=== PATIENT | female | born 1960 | race Caucasian/White ===

== ENCOUNTER 2017-07-07 20:06 | Emergency (ER) | payer OTHER ==
[2017-07-07] MEDS ORDERED: Ketorolac Tromethamine 30 MG/ML VIAL ONE (20:49)
== END 2017-07-07 21:13 | disposition home or self-care (01) ==
LOC: ERS 20:06
DX: J10.1 Influenza due to other identified influenza virus with other respiratory manifestations (principal); F17.210 Nicotine dependence, cigarettes, uncomplicated
CPT/HCPCS: 96372; J1885

== ENCOUNTER 2019-01-01 08:53 | Outpatient (CLI) | payer BC, OTHER ==
--- NOTE | 2019-01-01 09:35 | MMO ---
Bilateral MAMMO Bilat Screen [id number]. CLINICAL HISTORY: Patient is 58 years old and is seen for screening. The patient has no family history of breast cancer. The patient has no personal history of cancer. VIEWS: The views performed were: bilateral craniocaudal with tomosynthesis and bilateral mediolateral oblique with tomosynthesis. MAMMOGRAM FINDINGS: There are scattered fibroglandular densities. There are no suspicious masses, suspicious calcifications, or new areas of architectural distortion. IMPRESSION: THERE IS NO MAMMOGRAPHIC EVIDENCE OF MALIGNANCY. A ROUTINE FOLLOW-UP MAMMOGRAM IN 1 YEAR IS RECOMMENDED. THE RESULTS OF THIS EXAM WERE SENT TO THE PATIENT. ACR BI-RADS Category 1 - Negative MAMMOGRAPHY NOTE: 1. A negative mammogram report should not delay a biopsy if a dominant of clinically suspicious mass is present. 2. Approximately 10% to 15% of breast cancers are not detected by mammography. 3. Adenosis and dense breasts may obscure an underlying neoplasm.
== END 2019-01-01 08:54 | disposition home or self-care (01) ==
LOC: BICMAMMO 08:53
PROVIDERS: ATTEND Family Medicine
DX: Z12.31 Encounter for screening mammogram for malignant neoplasm of breast (principal)
CPT/HCPCS: 77063; 77067

== ENCOUNTER 2022-08-30 13:16 | Outpatient (CLI) | payer OTHER ==
[2022-08-30] MEDS ORDERED: Iopamidol-370 76% 500 ML 1 ML ONE (15:09)
== END 2022-08-30 13:17 | disposition home or self-care (01) ==
LOC: BICCT 13:16
PROVIDERS: ATTEND Family Medicine
DX: R93.89 Abnormal findings on diagnostic imaging of other specified body structures (principal); R91.8 Other nonspecific abnormal finding of lung field; J90 Pleural effusion, not elsewhere classified
CPT/HCPCS: 71260; Q9967

== ENCOUNTER 2022-09-11 10:48 | Day surgery (SDC) | payer OTHER, SELFPAY ==
[2022-09-08 13:50] VITALS: BMI 19.9
[2022-09-11] MEDS ORDERED: Lidocaine 1% MPF 2 ML VIAL ONE ×2 (11:36)
[2022-09-11] MEDS ORDERED: Ipratropium/Albuterol 3 ML NEB ONE (11:37)
[2022-09-11] MEDS ORDERED: SUGAMMADEX SODIUM 200 MG/2 ML VIAL ONE (11:54)
[2022-09-11] MEDS ORDERED: fentaNYL PF 100 MCG/2 ML SYRINGE ONE (11:54)
[2022-09-11] MEDS ORDERED: Rocuronium Bromide 10 MG/ML (10ML VIAL) ONE (12:30)
[2022-09-11] MEDS ORDERED: Glycopyrrolate 0.2 MG/ML 5 ML SYRINGE ONE (12:30)
[2022-09-11] MEDS ORDERED: PROPOFOL 200 MG/20 ML VIAL ONE (12:30)
[2022-09-11] MEDS ORDERED: Lidocaine 1% PF 5 ML VIAL ONE (12:30)
[2022-09-11] MEDS ORDERED: NEOSTIGMINE 3 MG/3 ML SYR 3 MG/3 ML SYRINGE ONE (12:30)
[2022-09-11] MEDS ORDERED: Dexamethasone 20 MG/5 ML VIAL ONE (12:30)
[2022-09-11] MEDS ORDERED: Ondansetron PF 4 MG/2 ML Vial ONE (12:30)
== END 2022-09-11 15:17 | disposition home or self-care (01) ==
LOC: SDC 10:48
PROVIDERS: ATTEND Internal Medicine
PROC: 0BBF8ZX Excision of Right Lower Lung Lobe, Via Natural or Artificial Opening Endoscopic, Diagnostic (ICD-10-PCS; principal; 2022-09-11)
PROC: 0B9F8ZX Drainage of Right Lower Lung Lobe, Via Natural or Artificial Opening Endoscopic, Diagnostic (ICD-10-PCS; principal; 2022-09-11)
PROC: 07B74ZX Excision of Thorax Lymphatic, Percutaneous Endoscopic Approach, Diagnostic (ICD-10-PCS; principal; 2022-09-11)
DX: C34.31 Malignant neoplasm of lower lobe, right bronchus or lung (principal); C77.1 Secondary and unspecified malignant neoplasm of intrathoracic lymph nodes; F17.210 Nicotine dependence, cigarettes, uncomplicated; Z79.899 Other long term (current) drug therapy; Z88.5 Allergy status to narcotic agent
CPT/HCPCS: 87070; 87102; 87116; 87205; 87206; 88112; 88172; 88173; 88177; 88305; 88341; 88342; J1100; J2405; J2704; J7620

== ENCOUNTER 2022-09-29 09:30 | Outpatient (CLI) | payer OTHER | END 2022-09-29 09:31 | disposition home or self-care (01) | LOC: PET 09:30 | PROVIDERS: ATTEND Internal Medicine | DX: C34.91 Malignant neoplasm of unspecified part of right bronchus or lung (principal); R91.8 Other nonspecific abnormal finding of lung field | CPT/HCPCS: 78815; A9552 ==

== ENCOUNTER 2022-09-29 11:21 | Outpatient (CLI) | payer OTHER | END 2022-09-29 11:22 | disposition home or self-care (01) | LOC: SCSMRI 11:21 | PROVIDERS: ATTEND Internal Medicine | DX: C34.91 Malignant neoplasm of unspecified part of right bronchus or lung (principal) | CPT/HCPCS: 70553 ==

== ENCOUNTER 2022-10-19 14:32 | Outpatient (CLI) | payer OTHER | END 2022-10-19 14:33 | disposition home or self-care (01) | LOC: ULT 14:32 | PROVIDERS: ATTEND Surgery | DX: C34.31 Malignant neoplasm of lower lobe, right bronchus or lung (principal); I08.3 Combined rheumatic disorders of mitral, aortic and tricuspid valves | CPT/HCPCS: 93306 ==

== ENCOUNTER 2022-11-13 11:44 | Inpatient (IN) | payer OTHER ==
[2022-11-13 12:35] LABS: #Basophils 0.1 thou/uL (0.0-0.2); #Eosinphils 0.2 thou/uL (0.0-0.7); #Lymphocytes 2.4 thou/uL (1.20-3.40); #Monocytes 0.4 thou/uL (0.11-0.59); %Basophils 0.6 % (0.0-1.0); %Eosinophils 1.9 % (0.0-10.0); %Lymphocytes 26.3 % (21.0-51.0); %Monocytes 4.3 % (0.0-10.0); %Neutrophils 67.1 % (42.0-75.0); Hemoglobin 11.4 g/dL (12.0-16.0); Mean Corpuscular HGB CONC 32.1 g/dL (32.0-36.0); Mean Corpuscular Hemoglobin 30.2 pg (27.0-31.0); Mean Corpuscular Volume 94.2 fl (78.0-98.0); Mean Platelet Volume 6.6 fL (7.4-10.4); Platelet Count 652 10x3/uL (130-400); Red Blood Cell (RBC) Count 3.77 mill/uL (4.20-5.40)
[2022-11-13 12:55] LABS: ALT (SGPT) 11 U/L (8-55); AST (SGOT) 12 U/L (5-34); Albumin 3.9 g/dL (3.4-4.8); Alkaline Phosphatase 149 U/L (40-110); Anion Gap 16 mmol/L (10-20); BUN (Urea Nitrogen) 9 mg/dL (9.8-20.1); Bilirubin, Total 0.2 mg/dL (0.2-1.2); Calc. Creatinine Clearance 0 mL/min (70-130); Calcium 10.3 mg/dL (7.8-10.44); Carbon Dioxide 25 mmol/L (23-31); Chloride 100 mmol/L (98-107); Estimated GFR 99; Globulin 3.7 g/dL (2.4-3.5); Glucose 94 mg/dL (80-115); Potassium 4.1 mmol/L (3.5-5.1); Protein, Total 7.6 g/dL (5.8-8.1); Sodium 137 mmol/L (136-145)
[2022-11-13] MEDS ORDERED: Ketorolac Tromethamine 30 MG/ML VIAL ONE (13:28)
[2022-11-13] MEDS ORDERED: Morphine 4 MG/ML VIAL ONE ×2 (14:45→16:07)
[2022-11-13] MEDS ORDERED: Ondansetron PF 4 MG/2 ML Vial ONE (14:45)
[2022-11-13] MEDS ORDERED: Acetaminophen 325 MG TAB PO PRN (15:59)
[2022-11-13] MEDS ORDERED: Morphine 4 MG/ML VIAL SLOW IVP PRN (16:33)
[2022-11-13] MEDS ORDERED: Aspirin 81 mg Enteric Coated Tablet PO SCH (17:00)
[2022-11-13 17:46] LABS: Troponin I Less than 0.010 ng/mL (< 0.028)
[2022-11-13] MEDS: Ketorolac Tromethamine 30 MG/ML VIAL IVP PRN (18:56)
[2022-11-13 20:02] VITALS: BMI 20.8
[2022-11-13] MEDS: Ondansetron PF 4 MG/2 ML Vial IVP PRN (22:05)
[2022-11-13 23:05] LABS: Troponin I Less than 0.010 ng/mL (< 0.028)
[2022-11-14] MEDS ORDERED: Morphine 4 MG/ML VIAL SLOW IVP SCH (00:30)
[2022-11-14] MEDS: Ketorolac Tromethamine 30 MG/ML VIAL IVP PRN (03:51)
[2022-11-14 05:28] LABS: #Basophils 0.1 thou/uL (0.0-0.2); #Eosinphils 0.5 thou/uL (0.0-0.7); #Lymphocytes 2.5 thou/uL (1.20-3.40); #Monocytes 0.4 thou/uL (0.11-0.59); #Neutrophils 3.3 thou/uL (1.40-6.50); %Basophils 0.7 % (0.0-1.0); %Eosinophils 6.8 % (0.0-10.0); %Lymphocytes 37.5 % (21.0-51.0); %Monocytes 6.6 % (0.0-10.0); %Neutrophils 48.5 % (42.0-75.0); Hemoglobin 10.5 g/dL (12.0-16.0); Mean Corpuscular HGB CONC 34.9 g/dL (32.0-36.0); Mean Corpuscular Hemoglobin 32.7 pg (27.0-31.0); Mean Corpuscular Volume 93.9 fl (78.0-98.0); Mean Platelet Volume 6.7 fL (7.4-10.4); Platelet Count 537 10x3/uL (130-400); RBC Distribution Width 13.1 % (11.5-14.5); Red Blood Cell (RBC) Count 3.21 mill/uL (4.20-5.40); White Blood Cell (WBC) Count 6.7 10x3/uL (4.8-10.8)
[2022-11-14 05:42] LABS: Anion Gap 13 mmol/L (10-20); BUN (Urea Nitrogen) 10 mg/dL (9.8-20.1); Calc. Creatinine Clearance 77 mL/min (70-130); Carbon Dioxide 23 mmol/L (23-31); Chloride 105 mmol/L (98-107); Estimated GFR 102; Glucose 103 mg/dL (80-115); Sodium 137 mmol/L (136-145)
[2022-11-14] MEDS: Morphine 2 MG/ML VIAL SLOW IVP PRN ×4 (08:42→23:09)
[2022-11-14] MEDS: Gabapentin 100 MG CAP PO SCH ×3 (08:44→20:21)
[2022-11-14] MEDS: Lidocaine 4% Patch TD SCH (08:45)
[2022-11-14] MEDS: Aspirin 81 mg Enteric Coated Tablet PO SCH (08:45)
[2022-11-14] MEDS ORDERED: Meloxicam 7.5 MG TAB PO SCH (12:00)
[2022-11-14] MEDS ORDERED: Ketorolac Tromethamine 30 MG/ML VIAL IVP PRN (15:44)
[2022-11-14] MEDS: Transdermal Patch Removal TOP SCH (21:40)
[2022-11-15] MEDS: Morphine 2 MG/ML VIAL SLOW IVP PRN ×5 (03:28→23:31)
[2022-11-15] MEDS: Aspirin 81 mg Enteric Coated Tablet PO SCH (08:36)
[2022-11-15] MEDS: Indomethacin 25 mg Capsule PO SCH ×3 (08:36→21:34)
[2022-11-15] MEDS: Gabapentin 100 MG CAP PO SCH ×3 (08:36→21:27)
[2022-11-15] MEDS: Lidocaine 4% Patch TD SCH (08:38)
[2022-11-15] MEDS: HYDROcodone/Acetaminophen 5/325 mg Tablet PO PRN ×2 (14:43→21:28)
[2022-11-15] MEDS: Ondansetron PF 4 MG/2 ML Vial IVP PRN ×2 (14:44→21:27)
[2022-11-15] MEDS: Transdermal Patch Removal TOP SCH (21:41)
[2022-11-16 06:06] VITALS: TEMP 97.4
[2022-11-16] MEDS: Gabapentin 100 MG CAP PO SCH (07:51)
[2022-11-16] MEDS: Indomethacin 25 mg Capsule PO SCH (07:51)
[2022-11-16] MEDS: Aspirin 81 mg Enteric Coated Tablet PO SCH (07:51)
[2022-11-16] MEDS: HYDROcodone/Acetaminophen 5/325 mg Tablet PO PRN (07:53)
[2022-11-16] MEDS: Morphine 2 MG/ML VIAL SLOW IVP PRN (07:58)
[2022-11-16] MEDS: Ondansetron PF 4 MG/2 ML Vial IVP PRN (07:58)
[2022-11-16] MEDS: Lidocaine 4% Patch TD SCH (08:22)
[2022-11-16 11:38] VITALS: BP 112/75
== END 2022-11-16 11:50 | disposition home or self-care (01) | DRG 194 ==
LOC: ERS 11:44 → 2SW 18:42 → OBSVTOIN 11-14 12:02 → T4-A 11-14 12:18 → 2SW 11-14 12:27 → T4-B 11-15 15:09
PROVIDERS: ADMIT Family Medicine; ATTEND Emergency Medicine
DX: R09.1 Pleurisy (principal); C34.90 Malignant neoplasm of unspecified part of unspecified bronchus or lung; J98.11 Atelectasis; E78.5 Hyperlipidemia, unspecified; F41.9 Anxiety disorder, unspecified; Z88.5 Allergy status to narcotic agent; Z79.51 Long term (current) use of inhaled steroids; Z87.891 Personal history of nicotine dependence; Z90.49 Acquired absence of other specified parts of digestive tract; Z90.710 Acquired absence of both cervix and uterus
CPT/HCPCS: 36415; 71275; 80048; 80053; 83605; 84484; 85025; 96372; 96374; 96375; 96376; J1885; J2270; J2272; J2405

== ENCOUNTER 2022-11-29 10:45 | Outpatient (CLI) | payer OTHER ==
[2022-11-29 12:44] LABS: #Eosinphils 0.3 10x3/uL (0.0-0.5); #Monocytes 0.4 10x3/uL (0.0-1.1); #Neutrophils 4.1 10x3/uL (1.5-8.4); %Basophils 0.6 % (0.0-2.0); %Eosinophils 4.8 % (0.0-6.0); %Lymphocytes 28.1 % (18.0-47.0); %Monocytes 5.8 % (0.0-10.0); %Neutrophils 60.3 % (40.0-75.0); Hemoglobin 12.8 g/dL (12.0-15.5); Mean Corpuscular HGB CONC 32.6 g/dL (32.0-36.0); Mean Platelet Volume 9.7 fl (7.4-10.4); Platelet Count 394 10x3/uL (150-450); RBC Distribution Width 14.5 % (11.5-14.5); Red Blood Cell (RBC) Count 4.27 10x6/uL (3.90-5.03); White Blood Cell (WBC) Count 6.7 10x3/uL (3.5-10.5)
[2022-11-29 13:29] LABS: Anion Gap 15 mmol/L (10-20); BUN (Urea Nitrogen) 13 mg/dL (9.8-20.1); Calc. Creatinine Clearance 0 mL/min (70-130); Calcium 9.7 mg/dL (7.8-10.44); Carbon Dioxide 26 mmol/L (23-31); Chloride 102 mmol/L (98-107); Estimated GFR 98; Glucose 91 mg/dL (80-115); Potassium 4.9 mmol/L (3.5-5.1); Sodium 138 mmol/L (136-145)
== END 2022-11-29 10:46 | disposition home or self-care (01) ==
LOC: LABBT 10:45
PROVIDERS: ATTEND Specialist
DX: Z01.818 Encounter for other preprocedural examination (principal); C34.91 Malignant neoplasm of unspecified part of right bronchus or lung
CPT/HCPCS: 71046; 80048; 85025

== ENCOUNTER 2022-11-30 10:35 | Day surgery (SDC) | payer OTHER ==
[2022-11-29 11:19] VITALS: BMI 20.6
[2022-11-30] MEDS ORDERED: Ketorolac Tromethamine 30 MG/ML VIAL ONE (11:25)
[2022-11-30] MEDS ORDERED: Acetaminophen 500 MG TAB ONE (11:25)
[2022-11-30] MEDS ORDERED: Propofol 500 MG/50 ML VIAL ONE (12:37)
[2022-11-30] MEDS ORDERED: fentaNYL PF 100 MCG/2 ML SYRINGE ONE (12:37)
[2022-11-30] MEDS ORDERED: Lidocaine 2% PF 5 ML VIAL ONE (12:39)
[2022-11-30] MEDS ORDERED: Bupivacaine/Epinephrine 0.25% 30 ML VIAL ONE (12:39)
[2022-11-30] MEDS ORDERED: PROPOFOL 200 MG/20 ML VIAL ONE (13:28)
[2022-11-30] MEDS ORDERED: Ondansetron PF 4 MG/2 ML Vial ONE (13:28)
== END 2022-11-30 15:32 | disposition home or self-care (01) ==
LOC: SDC 10:35
PROVIDERS: ATTEND Specialist
PROC: 02HV33Z Insertion of Infusion Device into Superior Vena Cava, Percutaneous Approach (ICD-10-PCS; principal; 2022-11-30)
PROC: B518ZZA Fluoroscopy of Superior Vena Cava, Guidance (ICD-10-PCS; principal; 2022-11-30)
PROC: 0JH60WZ Insertion of Totally Implantable Vascular Access Device into Chest Subcutaneous Tissue and Fascia, Open Approach (ICD-10-PCS; principal; 2022-11-30)
DX: C34.91 Malignant neoplasm of unspecified part of right bronchus or lung (principal); Z87.891 Personal history of nicotine dependence; Z88.5 Allergy status to narcotic agent; Z90.2 Acquired absence of lung [part of]
CPT/HCPCS: 71045; C1788; J1642; J1885; J2001; J2405; J2704

== ENCOUNTER 2023-06-22 08:24 | Inpatient (IN) | payer OTHER ==
[2023-06-22] MEDS ORDERED: HYDROmorphone 0.5 MG/0.5 ML SYRINGE ONE ×2 (08:49→10:48)
[2023-06-22] MEDS ORDERED: Ketorolac Tromethamine 30 MG/ML VIAL ONE (08:49)
[2023-06-22] MEDS ORDERED: Ondansetron PF 4 MG/2 ML Vial ONE (08:49)
[2023-06-22 09:04] LABS: #Monocytes 0.4 thou/uL (0.11-0.59); #Neutrophils 8.5 thou/uL (1.40-6.50); %Basophils 0.4 % (0.0-1.0); %Eosinophils 0.1 % (0.0-10.0); %Lymphocytes 12.1 % (21.0-51.0); %Monocytes 3.9 % (0.0-10.0); Hematocrit 50.9 % (36.0-47.0); Hemoglobin 17.6 g/dL (12.0-16.0); Mean Corpuscular HGB CONC 34.6 g/dL (32.0-36.0); Mean Corpuscular Hemoglobin 33.5 pg (27.0-31.0); Mean Corpuscular Volume 96.8 fl (78.0-98.0); Mean Platelet Volume 9.5 fL (7.4-10.4); Platelet Count 334 10x3/uL (130-400); RBC Distribution Width 11.9 % (11.5-14.5); Red Blood Cell (RBC) Count 5.26 mill/uL (4.20-5.40); White Blood Cell (WBC) Count 10.3 10x3/uL (4.8-10.8)
[2023-06-22 09:29] LABS: ALT (SGPT) 8 U/L (8-55); AST (SGOT) 16 U/L (5-34); Albumin 4.8 g/dL (3.4-4.8); Alkaline Phosphatase 134 U/L (40-110); Anion Gap 24 mmol/L (10-20); BUN (Urea Nitrogen) 21 mg/dL (9.8-20.1); Bilirubin, Total 1.2 mg/dL (0.2-1.2); Calc. Creatinine Clearance 0 mL/min (70-130); Carbon Dioxide 29 mmol/L (23-31); Chloride 88 mmol/L (98-107); Estimated GFR 59; Globulin 3.3 g/dL (2.4-3.5); Glucose 111 mg/dL (80-115); Lipase 10 U/L (8-78); Potassium 4.2 mmol/L (3.5-5.1); Protein, Total 8.1 g/dL (5.8-8.1); Sodium 137 mmol/L (136-145)
[2023-06-22 09:36] LABS: Calcium 13.8 mg/dL (7.8-10.44)
[2023-06-22] MEDS ORDERED: Lidocaine 2% Viscous Solution 10 ML, Aluminum & Magnesium Hydroxide 30 ML SSW SCH (11:00)
[2023-06-22 11:45] LABS: Troponin I 0.052 ng/mL (< 0.028)
[2023-06-22] MEDS ORDERED: Acetaminophen 325 MG TAB PO PRN (12:27)
[2023-06-22] MEDS ORDERED: Acetaminophen 650 MG Suppository PR PRN (12:27)
[2023-06-22] MEDS ORDERED: Ondansetron ODT 4 MG TAB PO PRN (12:27)
[2023-06-22] MEDS ORDERED: Pantoprazole 40 MG VIAL IVP SCH (12:29)
[2023-06-22] MEDS ORDERED: Sodium Chloride 0.9% 1,000 ML IV SCH (12:30)
[2023-06-22] MEDS ORDERED: Morphine 2 MG/ML VIAL SLOW IVP PRN (12:36)
[2023-06-22 12:41] LABS: Troponin I 0.047 ng/mL (< 0.028)
[2023-06-22] MEDS ORDERED: CALCITONIN SALMON SYNTHETIC IM SCH (13:15)
[2023-06-22] MEDS ORDERED: Iopamidol-370 76% 500 ML MDV (1 ML CHARGE) ONE (13:34)
[2023-06-22] MEDS ORDERED: Pantoprazole 40 MG VIAL ONE (13:36)
[2023-06-22] MEDS: Lidocaine 2% Viscous 100 ML BOTTLE SSW SCH ×3 (13:57→19:31)
[2023-06-22 14:24] LABS: Bacteria/HPF None Seen HPF (None Seen); Bilirubin Negative (Negative); Blood, Urine Negative (Negative); CAUTI Indications for Culture Immunosuppressed; Clarity Clear (Clear); Glucose, Urine (Dipstick) Normal (Negative); Ketone, Urine 100 mg/dL (Negative); Leukocyte Negative Leu/uL (Negative); Nitrite Negative (Negative); Protein, Urine (Dipstick) 10 mg/dL (Neg-Trace); RBC/HPF 0-3 HPF (0-3); Squamous Epithelial 0-3 HPF (0-3); Urobilinogen Normal mg/dL (Less than 2); WBC/HPF 0-3 HPF (0-3)
[2023-06-22 14:26] LABS: Specific Gravity, Urine 1.057 (1.002-1.036)
[2023-06-22 14:27] LABS: Urine Culture Reflex Yes Yes
[2023-06-22 14:58] VITALS: BMI 20.2
[2023-06-22] MEDS: Gabapentin 300 MG CAP PO SCH ×2 (15:42→19:29)
[2023-06-22] MEDS: Ondansetron PF 4 MG/2 ML Vial IVP PRN (17:09)
[2023-06-22 17:46] LABS: Anion Gap 13 mmol/L (10-20); BUN (Urea Nitrogen) 17 mg/dL (9.8-20.1); Calc. Creatinine Clearance 55 mL/min (70-130); Calcium 10.4 mg/dL (7.8-10.44); Carbon Dioxide 29 mmol/L (23-31); Chloride 101 mmol/L (98-107); Estimated GFR 85; Glucose 95 mg/dL (80-115); Potassium 3.5 mmol/L (3.5-5.1); Sodium 139 mmol/L (136-145)
[2023-06-22] MEDS ORDERED: Mag-Al 1200 mg/1200 mg/30 ML UDCUP PO PRN (18:58)
[2023-06-22] MEDS: NS 0.9% w/ 20 MEQ KCL 1,000 ML/1,000 ML BAG IV SCH (19:28)
[2023-06-22] MEDS: Pantoprazole 40 MG VIAL IVP SCH (19:29)
[2023-06-23] MEDS: NS 0.9% w/ 20 MEQ KCL 1,000 ML/1,000 ML BAG IV SCH (03:13)
[2023-06-23 04:17] LABS: #Eosinphils 0.1 thou/uL (0.0-0.7); #Monocytes 0.5 thou/uL (0.11-0.59); #Neutrophils 5.1 thou/uL (1.40-6.50); %Basophils 0.3 % (0.0-1.0); %Eosinophils 0.7 % (0.0-10.0); %Lymphocytes 17.7 % (21.0-51.0); %Monocytes 7.1 % (0.0-10.0); %Neutrophils 73.6 % (42.0-75.0); Mean Corpuscular Hemoglobin 33.9 pg (27.0-31.0); Mean Corpuscular Volume 99.5 fl (78.0-98.0); Mean Platelet Volume 9.6 fL (7.4-10.4); Red Blood Cell (RBC) Count 3.78 mill/uL (4.20-5.40)
[2023-06-23 04:45] LABS: Hematocrit 37.6 % (36.0-47.0); Hemoglobin 12.8 g/dL (12.0-16.0); Platelet Count 205 10x3/uL (130-400)
[2023-06-23 05:04] LABS: Anion Gap 9 mmol/L (10-20); BUN (Urea Nitrogen) 13 mg/dL (9.8-20.1); Calc. Creatinine Clearance 59 mL/min (70-130); Calcium 8.9 mg/dL (7.8-10.44); Carbon Dioxide 25 mmol/L (23-31); Chloride 109 mmol/L (98-107); Estimated GFR 91; Glucose 92 mg/dL (80-115); Magnesium 1.7 mg/dL (1.6-2.6); Potassium 3.7 mmol/L (3.5-5.1); Sodium 139 mmol/L (136-145)
[2023-06-23 05:21] LABS: Phosphorus 1.5 mg/dL (2.3-4.7)
[2023-06-23] MEDS ORDERED: Electrolyte Replacement Protocol 1 EACH FS SCH (05:42)
[2023-06-23] MEDS: Pantoprazole 40 MG VIAL IVP SCH (07:56)
[2023-06-23] MEDS ORDERED: Potassium Phosphate 22 MMOL in Sodium Chloride 0.9% 250 ML 250 ML IVPB SCH (08:00)
[2023-06-23] MEDS ORDERED: Magnesium 2 GM/50 ML(in water) 2 GM in Premix 1 BAG IVPB SCH (08:00)
[2023-06-23] MEDS: Lidocaine 2% Viscous 100 ML BOTTLE SSW SCH ×2 (08:04→12:37)
[2023-06-23] MEDS: Gabapentin 300 MG CAP PO SCH ×3 (08:04→20:11)
[2023-06-23] MEDS ORDERED: Polyethylene Glycol 3350 17 GM Packet PO PRN (10:27)
[2023-06-23] MEDS ORDERED: Electrolyte Replacement Protocol FS PRN (10:45)
[2023-06-23] MEDS: HYDROcodone/Acetaminophen 5/325 mg Tablet PO PRN ×2 (15:26→20:11)
[2023-06-23] MEDS: Famotidine 20 MG TAB PO SCH (20:12)
[2023-06-24 04:33] LABS: #Eosinphils 0.1 thou/uL (0.0-0.7); #Monocytes 0.4 thou/uL (0.11-0.59); #Neutrophils 3.6 thou/uL (1.40-6.50); %Basophils 0.5 % (0.0-1.0); %Eosinophils 2.5 % (0.0-10.0); %Lymphocytes 26.4 % (21.0-51.0); %Monocytes 7.7 % (0.0-10.0); %Neutrophils 62.5 % (42.0-75.0); Hematocrit 39.5 % (36.0-47.0); Hemoglobin 13.5 g/dL (12.0-16.0); Mean Corpuscular HGB CONC 34.2 g/dL (32.0-36.0); Mean Corpuscular Hemoglobin 33.7 pg (27.0-31.0); Mean Corpuscular Volume 98.5 fl (78.0-98.0); Mean Platelet Volume 9.5 fL (7.4-10.4); Platelet Count 207 10x3/uL (130-400); RBC Distribution Width 11.9 % (11.5-14.5); Red Blood Cell (RBC) Count 4.01 mill/uL (4.20-5.40); White Blood Cell (WBC) Count 5.7 10x3/uL (4.8-10.8)
[2023-06-24 05:04] LABS: Anion Gap 12 mmol/L (10-20); BUN (Urea Nitrogen) 5 mg/dL (9.8-20.1); Calc. Creatinine Clearance 70 mL/min (70-130); Calcium 8.8 mg/dL (7.8-10.44); Carbon Dioxide 23 mmol/L (23-31); Chloride 107 mmol/L (98-107); Estimated GFR 101; Glucose 79 mg/dL (80-115); Magnesium 2.2 mg/dL (1.6-2.6); Potassium 3.5 mmol/L (3.5-5.1); Sodium 138 mmol/L (136-145)
[2023-06-24] MEDS: Gabapentin 300 MG CAP PO SCH ×3 (08:31→20:08)
[2023-06-24] MEDS: Famotidine 20 MG TAB PO SCH ×2 (08:31→20:09)
[2023-06-24 10:27] LABS: Phosphorus 1.5 mg/dL (2.3-4.7)
[2023-06-24] MEDS ORDERED: K-Phos Neutral 250 MG TAB PO SCH (11:30)
[2023-06-24] MEDS ORDERED: Potassium Phosphate 22 MMOL in Sodium Chloride 0.9% 250 ML 250 ML IVPB SCH (12:00)
[2023-06-24] MEDS: K-Phos Neutral 250 MG TAB PO SCH (16:50)
[2023-06-24] MEDS: HYDROcodone/Acetaminophen 5/325 mg Tablet PO PRN (20:06)
[2023-06-24 20:21] LABS: Phosphorus 3.7 mg/dL (2.3-4.7)
[2023-06-25 05:39] LABS: Anion Gap 13 mmol/L (10-20); BUN (Urea Nitrogen) 6 mg/dL (9.8-20.1); Calc. Creatinine Clearance 72 mL/min (70-130); Calcium 9.2 mg/dL (7.8-10.44); Carbon Dioxide 22 mmol/L (23-31); Chloride 104 mmol/L (98-107); Estimated GFR 101; Glucose 84 mg/dL (80-115); Magnesium 1.9 mg/dL (1.6-2.6); Phosphorus 2.1 mg/dL (2.3-4.7); Potassium 3.4 mmol/L (3.5-5.1); Sodium 136 mmol/L (136-145)
[2023-06-25] MEDS ORDERED: Potassium Bicarbonate/Cit Ac 20 MEQ TAB PO SCH (08:00)
[2023-06-25] MEDS ORDERED: Magnesium 2 GM/50 ML(in water) 2 GM in Premix 1 BAG IVPB SCH (08:00)
[2023-06-25] MEDS: K-Phos Neutral 250 MG TAB PO SCH (08:23)
[2023-06-25] MEDS: Famotidine 20 MG TAB PO SCH (08:23)
[2023-06-25] MEDS: Gabapentin 300 MG CAP PO SCH (08:23)
[2023-06-25] MEDS ORDERED: Iopamidol 370 76% 100 ML VIAL ONE (09:29)
[2023-06-25] MEDS ORDERED: Magnevist 469MG/ML 20 ML VIAL ONE ×2 (09:51)
[2023-06-25] MEDS: Ondansetron PF 4 MG/2 ML Vial IVP PRN (10:22)
[2023-06-25 16:47] VITALS: BP 111/77; TEMP 97.9
== END 2023-06-25 17:24 | disposition home or self-care (01) | DRG 641 ==
LOC: ERS 08:24 → ERHOLD 10:55 → 2SW 14:28
PROVIDERS: ADMIT Internal Medicine; ATTEND Nurse Practitioner Family
DX: E83.52 Hypercalcemia (principal); C34.90 Malignant neoplasm of unspecified part of unspecified bronchus or lung; E86.0 Dehydration; E83.39 Other disorders of phosphorus metabolism; F32.A Depression, unspecified; E78.5 Hyperlipidemia, unspecified; E83.42 Hypomagnesemia; R07.9 Chest pain, unspecified; K21.9 Gastro-esophageal reflux disease without esophagitis; Z90.2 Acquired absence of lung [part of]; Z88.5 Allergy status to narcotic agent; Z79.899 Other long term (current) drug therapy; Z90.49 Acquired absence of other specified parts of digestive tract; Z90.710 Acquired absence of both cervix and uterus; Z98.890 Other specified postprocedural states; Z87.891 Personal history of nicotine dependence
CPT/HCPCS: 36415; 71045; 71275; 72157; 72197; 74177; 78306; 80048; 80053; 81001; 82306; 82310; 83690; 83735; 83880; 83970; 84100; 84443; 84484; 85025; 85379; 87086; 93005; 96374; 96375; 96376; A9503; A9579; C9113; J0630; J1170; J1885; J2405; J3475; J3480; J7050; Q0162; Q9967

== ENCOUNTER → 2023-07-19 | Outpatient (CLI) | payer OTHER | LOC: PET 08:45 | PROVIDERS: ATTEND Internal Medicine | DX: C34.31 Malignant neoplasm of lower lobe, right bronchus or lung (principal); R93.89 Abnormal findings on diagnostic imaging of other specified body structures | CPT/HCPCS: 78815; A9552 ==

== ENCOUNTER 2024-02-15 12:09 | Emergency (ER) | payer OTHER ==
[2024-02-15] MEDS ORDERED: Iopamidol-370 76% 500 ML MDV (1 ML CHARGE) ONE (12:27)
[2024-02-15] MEDS ORDERED: Morphine 4 MG/ML VIAL ONE ×2 (12:44→15:56)
[2024-02-15] MEDS ORDERED: Ondansetron PF 4 MG/2 ML Vial ONE (12:44)
[2024-02-15 13:11] LABS: #Basophils 0.03 10x3/uL (0.0-0.2); %Basophils 0.3 % (0.0-1.0); %Eosinophils 1.3 % (0.0-10.0); %Lymphocytes 6.8 % (21.0-51.0); %Monocytes 4.8 % (0.0-10.0); %Neutrophils 86.2 % (42.0-75.0); Hematocrit 38.9 % (36.0-47.0); Hemoglobin 14.2 g/dL (12.0-16.0); Mean Corpuscular HGB CONC 36.5 g/dL (32.0-36.0); Mean Corpuscular Hemoglobin 35.7 pg (27.0-31.0); Mean Corpuscular Volume 97.7 fL (78.0-98.0); Mean Platelet Volume 9.6 fL (7.4-10.4); Platelet Count 234 10x3/uL (130-400); RBC Distribution Width 11.9 % (11.5-14.5); Red Blood Cell (RBC) Count 3.98 mill/uL (4.20-5.40)
[2024-02-15 13:31] LABS: ALT (SGPT) 8 U/L (8-55); AST (SGOT) 13 U/L (5-34); Albumin 3.4 g/dL (3.4-4.8); Alkaline Phosphatase 93 U/L (40-110); Anion Gap 13 mmol/L (10-20); BUN (Urea Nitrogen) 10 mg/dL (9.8-20.1); Bilirubin, Total 0.4 mg/dL (0.2-1.2); Calc. Creatinine Clearance 0 mL/min (70-130); Carbon Dioxide 25 mmol/L (23-31); Chloride 103 mmol/L (98-107); Estimated GFR 91; Glucose 126 mg/dL (80-115); Lipase 14 U/L (8-78); Potassium 3.2 mmol/L (3.5-5.1); Protein, Total 6.4 g/dL (5.8-8.1); Sodium 138 mmol/L (136-145)
[2024-02-15 14:23] LABS: Bilirubin Negative (Negative); Blood, Urine Negative (Negative); CAUTI Indications for Culture Pelvic or flank pain; Clarity Clear (Clear); Glucose, Urine (Dipstick) Normal (Negative); Ketone, Urine 80 mg/dL (Negative); Leukocyte 75 Leu/uL (Negative); Nitrite Negative (Negative); Protein, Urine (Dipstick) 50 mg/dL (Neg-Trace); RBC/HPF 0-3 HPF (0-3)
[2024-02-15 14:47] LABS: Bacteria/HPF 1+ HPF (None Seen)
[2024-02-15 14:48] LABS: Calcium Oxalate Crystals 1+ HPF (None Seen); Yeast-Budding 1+ HPF (None Seen)
[2024-02-15 14:49] LABS: Mucous/LPF 2+ LPF (<2+); Urine Culture Reflex No No
[2024-02-15] MEDS ORDERED: Sucralfate 1 GM/10 ML UDCUP ONE (15:40)
[2024-02-15] MEDS ORDERED: Potassium Chloride 20 MEQ TAB ONE (15:43)
== END 2024-02-15 16:21 | disposition home or self-care (01) ==
LOC: ERS 12:09
DX: K80.20 Calculus of gallbladder without cholecystitis without obstruction (principal); K52.9 Noninfective gastroenteritis and colitis, unspecified; F17.210 Nicotine dependence, cigarettes, uncomplicated
CPT/HCPCS: 36415; 74177; 76705; 80053; 81001; 83690; 85025; 93005; 96361; 96374; 96375; 96376; J2272; J2405; Q9967

== ENCOUNTER 2024-03-11 14:46 | Emergency (ER) | payer OTHER ==
[2024-03-11] MEDS ORDERED: Ketorolac Tromethamine 30 MG (1 mL) VIAL ONE (15:20)
[2024-03-11] MEDS ORDERED: Ondansetron PF 4 MG/2 ML Vial ONE (15:20)
[2024-03-11 15:32] LABS: Bacteria/HPF None Seen HPF (None Seen); Bilirubin Negative (Negative); Blood, Urine Negative (Negative); CAUTI Indications for Culture Dysuria,urgency,freq; Clarity Extra Turbid (Clear); Glucose, Urine (Dipstick) Normal (Negative); Ketone, Urine 10 mg/dL (Negative); Leukocyte Negative Leu/uL (Negative); Nitrite Negative (Negative); Protein, Urine (Dipstick) 10 mg/dL (Neg-Trace); RBC/HPF 0-3 HPF (0-3); Specific Gravity, Urine 1.018 (1.002-1.036); Urobilinogen Normal mg/dL (Less than 2); WBC/HPF None Seen HPF (0-3)
[2024-03-11 15:33] LABS: Urine Culture Reflex No No
[2024-03-11 15:51] LABS: Troponin I Less than 0.010 ng/mL (< 0.028)
[2024-03-11 15:58] LABS: ALT (SGPT) 16 U/L (8-55); AST (SGOT) 27 U/L (5-34); Albumin 4.3 g/dL (3.4-4.8); Alkaline Phosphatase 134 U/L (40-110); Anion Gap 17 mmol/L (10-20); BUN (Urea Nitrogen) 12 mg/dL (9.8-20.1); Bilirubin, Total 1.1 mg/dL (0.2-1.2); Calc. Creatinine Clearance 0 mL/min (70-130); Calcium 10.1 mg/dL (7.8-10.44); Carbon Dioxide 17 mmol/L (23-31); Chloride 108 mmol/L (98-107); Estimated GFR 98; Globulin 3.5 g/dL (2.4-3.5); Glucose 110 mg/dL (80-115); Lipase 24 U/L (8-78); Potassium 3.8 mmol/L (3.5-5.1); Protein, Total 7.8 g/dL (5.8-8.1); Sodium 138 mmol/L (136-145)
[2024-03-11 17:13] LABS: #Basophils 0.05 10x3/uL (0.0-0.2); %Basophils 0.4 % (0.0-1.0); %Eosinophils 0.5 % (0.0-10.0); %Lymphocytes 11.6 % (21.0-51.0); %Monocytes 3.8 % (0.0-10.0); %Neutrophils 83.4 % (42.0-75.0); Hematocrit 50.1 % (36.0-47.0); Mean Corpuscular HGB CONC 33.9 g/dL (32.0-36.0); Mean Corpuscular Hemoglobin 34.7 pg (27.0-31.0); Mean Corpuscular Volume 102.2 fL (78.0-98.0); Mean Platelet Volume 9.5 fL (7.4-10.4); Platelet Count 238 10x3/uL (130-400); RBC Distribution Width 12.2 % (11.5-14.5)
[2024-03-11 17:35] LABS: Troponin I Less than 0.010 ng/mL (< 0.028)
[2024-03-11] MEDS ORDERED: fentaNYL 50 mcg/mL 1 mL Vial ONE (17:47)
== END 2024-03-11 18:21 | disposition home or self-care (01) ==
LOC: ERS 14:46
DX: K80.50 Calculus of bile duct without cholangitis or cholecystitis without obstruction (principal); R07.9 Chest pain, unspecified; K80.20 Calculus of gallbladder without cholecystitis without obstruction
CPT/HCPCS: 36415; 71045; 76705; 80053; 81001; 83690; 84484; 85025; 93005; 96374; 96375; J1885; J2405; J3010

== ENCOUNTER 2024-05-16 08:40 | Outpatient (CLI) | payer OTHER ==
[2024-05-16] MEDS ORDERED: Iopamidol 370 76% 100 ML VIAL ONE (11:28)
== END 2024-05-16 08:41 | disposition home or self-care (01) ==
LOC: CT 08:40
PROVIDERS: ATTEND Internal Medicine
DX: C34.31 Malignant neoplasm of lower lobe, right bronchus or lung (principal)
CPT/HCPCS: 36415; 71260; 82565; Q9967

== ENCOUNTER 2024-05-27 09:40 | Outpatient (CLI) | payer OTHER | END 2024-05-27 09:41 | disposition home or self-care (01) | LOC: BICMAMMO 09:40 | PROVIDERS: ATTEND Family Medicine | DX: Z12.31 Encounter for screening mammogram for malignant neoplasm of breast (principal); E89.40 Asymptomatic postprocedural ovarian failure; N63.15 Unspecified lump in the right breast, overlapping quadrants; M85.852 Other specified disorders of bone density and structure, left thigh; M81.0 Age-related osteoporosis without current pathological fracture; Z85.118 Personal history of other malignant neoplasm of bronchus and lung | CPT/HCPCS: 77063; 77067; 77080 ==

== ENCOUNTER 2024-06-04 09:33 | Outpatient (CLI) | payer OTHER | END 2024-06-04 09:34 | disposition home or self-care (01) | LOC: BICMAMMO 09:33 | PROVIDERS: ATTEND Family Medicine | DX: N63.15 Unspecified lump in the right breast, overlapping quadrants (principal) | CPT/HCPCS: G0279 ==

== ENCOUNTER 2024-07-22 08:44 | Outpatient (CLI) | payer OTHER | END 2024-07-22 08:45 | disposition home or self-care (01) | LOC: BICMRI 08:44 | PROVIDERS: ATTEND Nurse Practitioner Family | DX: M54.14 Radiculopathy, thoracic region (principal); M48.04 Spinal stenosis, thoracic region | CPT/HCPCS: 72146 ==